=== PATIENT | male | born 1985 | race African-American/Black ===

== ENCOUNTER 2022-05-20 00:42 | Inpatient (IN) | payer SELFPAY ==
[2022-05-20 01:46] LABS: #Lymphocytes 1.1 thou/uL (1.20-3.40); #Monocytes 0.7 thou/uL (0.11-0.59); #Neutrophils 9.1 thou/uL (1.40-6.50); %Basophils 0.4 % (0.0-1.0); %Eosinophils 0.2 % (0.0-10.0); %Lymphocytes 10.2 % (21.0-51.0); %Monocytes 6.3 % (0.0-10.0); %Neutrophils 82.9 % (42.0-75.0); Hemoglobin 16.8 g/dL (14.0-18.0); Mean Corpuscular HGB CONC 31.3 g/dL (32.0-36.0); Mean Corpuscular Hemoglobin 30.4 pg (27.0-31.0); Mean Corpuscular Volume 97.3 fL (78.0-98.0); Mean Platelet Volume 8.2 fL (7.4-10.4); Platelet Count 345 thou/uL (130-400); RBC Distribution Width 11.7 % (11.5-14.5); Red Blood Cell (RBC) Count 5.52 mill/uL (4.70-6.10)
[2022-05-20 02:04] LABS: Analyzer IN Cardio ER; Base Excess -21.2 mEq/L (-2.0 to +3.0); Chloride (VBG) 99 mmol/L (98-106); Hemoglobin (Hb) 17.9 g/dL (13.2-17.3); Potassium (VBG) 5.41 mmol/L (3.70-5.30); Sodium 126.8 mmol/L (133-146)
[2022-05-20 02:09] LABS: Actual Bicarbonate (HCO3v) 7 mEq/L (22-28)
[2022-05-20 02:10] LABS: ALT (SGPT) 24 U/L (8-55); AST (SGOT) 22 U/L (5-34); Albumin 4.8 g/dL (3.5-5.0); Alkaline Phosphatase 98 U/L (40-110); BUN (Urea Nitrogen) 15 mg/dL (8.9-20.6); Bilirubin, Total 0.9 mg/dL (0.2-1.2); Calc. Creatinine Clearance 0 mL/min (70-130); Calcium 9.5 mg/dL (7.8-10.44); Chloride 98 mmol/L (98-107); Estimated GFR 55; Globulin 4.2 g/dL (2.4-3.5); Glucose 314 mg/dL (70-105); Lipase 21 U/L (8-78); Potassium 5.3 mmol/L (3.5-5.1); Sodium 127 mmol/L (136-145)
[2022-05-20 02:19] LABS: Carbon Dioxide Less than 8 mmol/L (22-29)
[2022-05-20] MEDS ORDERED: Ondansetron PF 4 MG/2 ML Vial ONE (02:37)
[2022-05-20] MEDS ORDERED: INSULIN REGULAR IN 0.9 % NACL 100 UNIT/100 ML BAG ONE (02:37)
[2022-05-20] MEDS ORDERED: Sodium Chloride 0.9% 1,000 ML IV PRN ×3 (02:42)
[2022-05-20] MEDS ORDERED: Dextrose 5 %-0.45 % NaCl 1,000 ML IV PRN (02:42)
[2022-05-20] MEDS ORDERED: D5 1/2 NS w/20 mEq KCL 1,000 ML IV PRN (02:42)
[2022-05-20] MEDS ORDERED: NS 0.9% w/ 20 MEQ KCL 1,000 ML IV PRN ×2 (02:42)
[2022-05-20] MEDS ORDERED: Electrolyte Replacement Protocol IVPB PRN (02:42)
[2022-05-20] MEDS ORDERED: Zolpidem Tartrate 5 MG TAB PO PRN (02:43)
[2022-05-20] MEDS ORDERED: Guaifenesin DM 100-10/5 ML UDCUP PO PRN (02:43)
[2022-05-20] MEDS ORDERED: Ondansetron PF 4 MG/2 ML Vial IVP PRN (02:43)
[2022-05-20] MEDS ORDERED: hydrALAZINE 20 MG/ML VIAL SLOW IVP PRN (02:44)
[2022-05-20] MEDS ORDERED: Morphine 2 MG/ML VIAL SLOW IVP PRN (02:44)
[2022-05-20] MEDS ORDERED: HUMULIN R 100 UNITS in Sodium Chloride 0.9% 100 ML IVPB SCH (02:45)
[2022-05-20] MEDS ORDERED: Nicotine 21 MG PATCH TD SCH (02:45)
[2022-05-20] MEDS ORDERED: cefTRIAXone\\ROCEPHIN 2 GM in Sodium Chloride 0.9% 100 ML IVPB SCH (03:00)
[2022-05-20 04:14] LABS: Hemoglobin A1c 13.2 % (4.0-6.0)
[2022-05-20] MEDS: Sodium Chloride 0.9% 1,000 ML IV PRN ×2 (04:19→06:09)
[2022-05-20 04:28] VITALS: BMI 21.6
[2022-05-20 04:47] LABS: Calcium 8.7 mg/dL (7.8-10.44); Chloride 104 mmol/L (98-107); Sodium 129 mmol/L (136-145)
[2022-05-20 04:48] LABS: Glucose 251 mg/dL (70-105)
[2022-05-20 04:50] LABS: Anion Gap 22 mmol/L (10-20)
[2022-05-20 04:51] LABS: Calc. Creatinine Clearance 66 mL/min (70-130); Estimated GFR 64
[2022-05-20 04:52] LABS: BUN (Urea Nitrogen) 15 mg/dL (8.9-20.6); Carbon Dioxide 8 mmol/L (22-29)
[2022-05-20 04:53] LABS: Magnesium 1.7 mg/dL (1.6-2.6)
[2022-05-20] MEDS ORDERED: Magnesium 2 GM/50 ML(in water) 2 GM in Premix Bag 1 BAG IVPB SCH (05:30)
[2022-05-20] MEDS ORDERED: Dextrose 10% in Water 250 ML IVPB SCH (06:45)
[2022-05-20 07:29] LABS: Anion Gap 17 mmol/L (10-20); BUN (Urea Nitrogen) 13 mg/dL (8.9-20.6); Calc. Creatinine Clearance 76 mL/min (70-130); Calcium 8.4 mg/dL (7.8-10.44); Carbon Dioxide 11 mmol/L (22-29); Chloride 106 mmol/L (98-107); Estimated GFR 77; Glucose 160 mg/dL (70-105); Potassium 4.6 mmol/L (3.5-5.1); Sodium 129 mmol/L (136-145)
[2022-05-20 07:52] LABS: Bacteria/HPF None Seen HPF (None Seen); Bilirubin Negative (Negative); Blood, Urine 1+ (Negative); Clarity Clear (Clear); Glucose, Urine (Dipstick) Greater than 1000 mg/dL (Negative); Ketone, Urine Greater than 150 mg/dL (Negative); Leukocyte Negative Leu/uL (Negative); Nitrite Negative (Negative); Protein, Urine (Dipstick) 50 mg/dL (Neg-Trace); RBC/HPF 0-3 HPF (0-3); Specific Gravity, Urine 1.023 (1.002-1.036); Squamous Epithelial 0-3 HPF (0-3); Urobilinogen Normal mg/dL (Less than 2); WBC/HPF 0-3 HPF (0-3); pH, Urine 5.5 (5.0-9.0)
[2022-05-20 08:22] LABS: SARS-CoV-2 NAA Rapid Test Not Detected (NotDetected)
[2022-05-20] MEDS ORDERED: Enoxaparin Sodium 30 MG/0.3 ML SYRINGE SC SCH (09:00)
[2022-05-20] MEDS ORDERED: Famotidine 20 MG TAB PO SCH (09:00)
[2022-05-20 11:42] LABS: Anion Gap 18 mmol/L (10-20); BUN (Urea Nitrogen) 11 mg/dL (8.9-20.6); Calc. Creatinine Clearance 82 mL/min (70-130); Calcium 8.2 mg/dL (7.8-10.44); Chloride 105 mmol/L (98-107); Estimated GFR 84; Glucose 188 mg/dL (70-105); Potassium 5.4 mmol/L (3.5-5.1); Sodium 126 mmol/L (136-145)
[2022-05-20 11:48] LABS: Carbon Dioxide 8 mmol/L (22-29)
[2022-05-20] MEDS: Dextrose 5 % And 0.9 % NaCl 1,000 ML IV SCH ×2 (12:05→16:23)
[2022-05-20 13:13] VITALS: TEMP 98.2
[2022-05-20] MEDS ORDERED: Dextrose 50% Abboject 50 ML SYRINGE IVP PRN (13:15)
[2022-05-20] MEDS ORDERED: Dextrose 5% in Water 1,000 ML IV PRN (13:15)
[2022-05-20 15:45] LABS: Anion Gap 12 mmol/L (10-20); BUN (Urea Nitrogen) 9 mg/dL (8.9-20.6); Calc. Creatinine Clearance 91 mL/min (70-130); Calcium 7.8 mg/dL (7.8-10.44); Carbon Dioxide 18 mmol/L (22-29); Chloride 106 mmol/L (98-107); Estimated GFR 96; Glucose 210 mg/dL (70-105); Potassium 4.2 mmol/L (3.5-5.1); Sodium 132 mmol/L (136-145)
[2022-05-20] MEDS ORDERED: Insulin Glargine 30 UNITS/0.3 ML VIAL SC SCH (16:00)
[2022-05-21] MEDS ORDERED: Enoxaparin Sodium 40 MG/0.4 ML SYRINGE SC SCH (09:00)
== END 2022-05-20 17:30 | disposition home or self-care (01) | DRG 638 ==
LOC: ERS 00:42 → CCU 02:40
PROVIDERS: ADMIT Internal Medicine; ATTEND Internal Medicine
DX: E11.10 Type 2 diabetes mellitus with ketoacidosis without coma (principal); E87.1 Hypo-osmolality and hyponatremia; N17.9 Acute kidney failure, unspecified; E87.5 Hyperkalemia; F17.210 Nicotine dependence, cigarettes, uncomplicated; Z20.822 Contact with and (suspected) exposure to COVID-19; Z79.4 Long term (current) use of insulin; Z79.84 Long term (current) use of oral hypoglycemic drugs
CPT/HCPCS: 36415; 36416; 71045; 80053; 81001; 82010; 82805; 83036; 83605; 83690; 83735; 83930; 85025; 93005; 96361; 96374; 96375; J0696; J1650; J1815; J2405; J3475; J3480; J3490; J7042; J7050; U0002

== ENCOUNTER 2022-07-07 13:05 | Inpatient (IN) | payer BC, SELFPAY ==
[2022-07-07] MEDS ORDERED: Ondansetron PF 4 MG/2 ML Vial ONE (13:45)
[2022-07-07 14:03] LABS: Base Excess -24.1 mEq/L (-2.0 to +3.0); Calcium, Ionized (venous) 1.07 mmol/L (1.16-1.32); Chloride (VBG) 100 mmol/L (98-106); Hemoglobin (Hb) 18.8 g/dL (13.2-17.3); Potassium (VBG) 5.12 mmol/L (3.70-5.30); Sodium 131.6 mmol/L (133-146)
[2022-07-07 14:04] LABS: Actual Bicarbonate (HCO3v) 6 mEq/L (22-28); pH (venous) 6.99 (7.32-7.43)
[2022-07-07 14:23] LABS: #Lymphocytes 0.9 thou/uL (1.20-3.40); #Monocytes 1.1 thou/uL (0.11-0.59); #Neutrophils 11.7 thou/uL (1.40-6.50); %Basophils 0.3 % (0.0-1.0); %Eosinophils 0.2 % (0.0-10.0); %Lymphocytes 6.8 % (21.0-51.0); %Monocytes 7.8 % (0.0-10.0); %Neutrophils 84.8 % (42.0-75.0); Hemoglobin 16.4 g/dL (14.0-18.0); Mean Corpuscular Hemoglobin 29.9 pg (27.0-31.0); Mean Corpuscular Volume 99.9 fl (78.0-98.0); Platelet Count 426 10x3/uL (130-400); RBC Distribution Width 11.9 % (11.5-14.5); Red Blood Cell (RBC) Count 5.48 mill/uL (4.70-6.10); White Blood Cell (WBC) Count 13.8 10x3/uL (4.8-10.8)
[2022-07-07 14:25] LABS: ALT (SGPT) 27 U/L (8-55); AST (SGOT) 22 U/L (5-34); Albumin 4.8 g/dL (3.5-5.0); Alkaline Phosphatase 107 U/L (40-110); Anion Gap 29 mmol/L (10-20); BUN (Urea Nitrogen) 20 mg/dL (8.9-20.6); Bilirubin, Total 0.8 mg/dL (0.2-1.2); Calc. Creatinine Clearance 0 mL/min (70-130); Chloride 98 mmol/L (98-107); Estimated GFR 49; Globulin 3.4 g/dL (2.4-3.5); Glucose 358 mg/dL (70-105); Lipase 22 U/L (8-78); Phosphorus 6.5 mg/dL (2.3-4.7); Potassium 5.7 mmol/L (3.5-5.1); Protein, Total 8.2 g/dL (6.0-8.3); Sodium 129 mmol/L (136-145)
[2022-07-07 14:36] LABS: Hypochromia SLIGHT = 6-15 cells (100X) (0-5/hpf); MDiff Complete? YES; Macrocytosis SLIGHT = 6-15 cells (100X) (0-5/hpf); Platelet Morphology Comment Appears Increased; Polychromasia SLIGHT = 2-3 cells (100X) (0-2/hpf)
[2022-07-07] MEDS ORDERED: INSULIN REGULAR IN 0.9 % NACL 100 UNIT/100 ML BAG ONE (14:37)
[2022-07-07 14:50] LABS: Carbon Dioxide 8 mmol/L (22-29)
[2022-07-07] MEDS ORDERED: Ondansetron PF 4 MG/2 ML Vial IVP PRN (15:13)
[2022-07-07] MEDS ORDERED: Acetaminophen 650 MG Suppository PR PRN (15:13)
[2022-07-07] MEDS ORDERED: Sodium Chloride 0.9% 1,000 ML IV PRN ×4 (15:13)
[2022-07-07] MEDS ORDERED: Dextrose 5 %-0.45 % NaCl 1,000 ML IV PRN (15:13)
[2022-07-07] MEDS ORDERED: Ondansetron ODT 4 MG TAB PO PRN (15:13)
[2022-07-07] MEDS ORDERED: Senokot S 8.6-50 MG TAB PO PRN (15:13)
[2022-07-07] MEDS ORDERED: Electrolyte Replacement Protocol 1 EACH IVPB ONE (15:13)
[2022-07-07] MEDS ORDERED: Acetaminophen 325 MG TAB PO PRN (15:13)
[2022-07-07] MEDS ORDERED: Calcium Carbonate 500 MG ChewTAB PO PRN (15:13)
[2022-07-07] MEDS ORDERED: NS 0.9% w/ 20 MEQ KCL 1,000 ML IV PRN ×2 (15:13)
[2022-07-07] MEDS ORDERED: HUMULIN R 100 UNITS in Sodium Chloride 0.9% 100 ML IVPB SCH (15:15)
[2022-07-07] MEDS ORDERED: Sodium Chloride 0.9% 1,000 ML IV SCH ×2 (15:30→16:30)
[2022-07-07 16:12] LABS: Anion Gap 26 mmol/L (10-20); BUN (Urea Nitrogen) 19 mg/dL (8.9-20.6); Calc. Creatinine Clearance 0 mL/min (70-130); Calcium 9.2 mg/dL (7.8-10.44); Chloride 103 mmol/L (98-107); Estimated GFR 56; Glucose 315 mg/dL (70-105); Potassium 5.8 mmol/L (3.5-5.1); Sodium 131 mmol/L (136-145)
[2022-07-07 16:19] LABS: Carbon Dioxide 8 mmol/L (22-29)
[2022-07-07] MEDS ORDERED: Sodium Bicarb 50 MEQ/50 ML VIAL IVP SCH (16:30)
[2022-07-07] MEDS ORDERED: Electrolyte Replacement Protocol FS PRN (16:30)
[2022-07-07] MEDS ORDERED: Sodium Bicarb 50 MEQ/50 ML Abboject 8.4% SYRINGE IVP SCH (16:30)
[2022-07-07] MEDS: Sodium Bicarb 50 MEQ/50 ML VIAL IVP SCH ×2 (17:08→19:47)
[2022-07-07 19:43] LABS: Anion Gap 19 mmol/L (10-20); BUN (Urea Nitrogen) 16 mg/dL (8.9-20.6); Calc. Creatinine Clearance 62 mL/min (70-130); Calcium 8.1 mg/dL (7.8-10.44); Carbon Dioxide 15 mmol/L (22-29); Chloride 109 mmol/L (98-107); Estimated GFR 63; Glucose 141 mg/dL (70-105); Potassium 4.4 mmol/L (3.5-5.1); Sodium 139 mmol/L (136-145)
[2022-07-07] MEDS: D5 1/2 NS w/20 mEq KCL 1,000 ML IV PRN (19:54)
[2022-07-07] MEDS ORDERED: Magnesium 2 GM/50 ML(in water) 2 GM in Premix Bag 1 BAG IVPB SCH (22:00)
[2022-07-07 23:39] LABS: Anion Gap 13 mmol/L (10-20); BUN (Urea Nitrogen) 15 mg/dL (8.9-20.6); Calc. Creatinine Clearance 84 mL/min (70-130); Calcium 7.7 mg/dL (7.8-10.44); Carbon Dioxide 19 mmol/L (22-29); Chloride 108 mmol/L (98-107); Estimated GFR 91; Glucose 203 mg/dL (70-105); Potassium 4.3 mmol/L (3.5-5.1); Sodium 136 mmol/L (136-145)
[2022-07-08] MEDS: D5 1/2 NS w/20 mEq KCL 1,000 ML IV PRN ×2 (04:11)
[2022-07-08 04:21] LABS: #Lymphocytes 1.5 thou/uL (1.20-3.40); #Monocytes 1.4 thou/uL (0.11-0.59); #Neutrophils 8.8 thou/uL (1.40-6.50); %Basophils 0.1 % (0.0-1.0); %Eosinophils 0.3 % (0.0-10.0); %Lymphocytes 12.8 % (21.0-51.0); %Monocytes 12.1 % (0.0-10.0); %Neutrophils 74.6 % (42.0-75.0); Hemoglobin 12.7 g/dL (14.0-18.0); Mean Corpuscular HGB CONC 31.9 g/dL (32.0-36.0); Mean Corpuscular Hemoglobin 30.4 pg (27.0-31.0); Mean Corpuscular Volume 95.4 fl (78.0-98.0); Mean Platelet Volume 7.5 fL (7.4-10.4); Platelet Count 333 10x3/uL (130-400); RBC Distribution Width 11.6 % (11.5-14.5); Red Blood Cell (RBC) Count 4.18 mill/uL (4.70-6.10); White Blood Cell (WBC) Count 11.8 10x3/uL (4.8-10.8)
[2022-07-08 04:22] LABS: Hemoglobin A1c 13.4 % (4.0-6.0)
[2022-07-08 04:42] LABS: ALT (SGPT) 16 U/L (8-55); AST (SGOT) 15 U/L (5-34); Albumin 3.1 g/dL (3.5-5.0); Alkaline Phosphatase 65 U/L (40-110); Anion Gap 10 mmol/L (10-20); BUN (Urea Nitrogen) 13 mg/dL (8.9-20.6); Bilirubin, Total 1.2 mg/dL (0.2-1.2); Calc. Creatinine Clearance 89 mL/min (70-130); Calcium 7.6 mg/dL (7.8-10.44); Carbon Dioxide 21 mmol/L (22-29); Chloride 107 mmol/L (98-107); Estimated GFR 97; Globulin 2.3 g/dL (2.4-3.5); Glucose 220 mg/dL (70-105); Magnesium 1.9 mg/dL (1.6-2.6); Phosphorus 2.4 mg/dL (2.3-4.7); Potassium 4.1 mmol/L (3.5-5.1); Protein, Total 5.4 g/dL (6.0-8.3); Sodium 134 mmol/L (136-145)
[2022-07-08] MEDS ORDERED: Magnesium 2 GM/50 ML(in water) 2 GM in Premix Bag 1 BAG IVPB SCH (08:00)
[2022-07-08] MEDS ORDERED: Dextrose 50% Abboject 50 ML SYRINGE SLOW IVP PRN (08:13)
[2022-07-08] MEDS ORDERED: Dextrose 5% in Water 1,000 ML IV PRN (08:13)
[2022-07-08] MEDS ORDERED: HumaLOG 300 UNITS/3 ML VIAL SC PRN (08:13)
[2022-07-08] MEDS ORDERED: Sodium Chloride 0.9% 1,000 ML IV SCH (08:30)
[2022-07-08] MEDS ORDERED: Potassium Chloride 20 MEQ TAB PO SCH (08:30)
[2022-07-08] MEDS ORDERED: Insulin Glargine 30 UNITS/0.3 ML VIAL SC SCH (09:00)
[2022-07-08] MEDS ORDERED: Enoxaparin Sodium 40 MG/0.4 ML SYRINGE SC SCH (09:00)
[2022-07-08] MEDS ORDERED: Nicotine 21 MG PATCH TD SCH (09:00)
[2022-07-08 11:53] VITALS: TEMP 97.9
[2022-07-08 13:25] VITALS: BMI 22.6
== END 2022-07-08 16:45 | disposition left against medical advice (07) | DRG 638 ==
LOC: ERS 13:05 → IMCU/EMU 16:23
PROVIDERS: ADMIT Internal Medicine; ATTEND Internal Medicine
DX: E11.10 Type 2 diabetes mellitus with ketoacidosis without coma (principal); E87.1 Hypo-osmolality and hyponatremia; N17.9 Acute kidney failure, unspecified; Z20.822 Contact with and (suspected) exposure to COVID-19; E86.0 Dehydration; E87.5 Hyperkalemia; F17.210 Nicotine dependence, cigarettes, uncomplicated; Z79.4 Long term (current) use of insulin; Z79.899 Other long term (current) drug therapy; Z79.84 Long term (current) use of oral hypoglycemic drugs; Z91.14 Patient's other noncompliance with medication regimen; Z53.29 Procedure and treatment not carried out because of patient's decision for other reasons
CPT/HCPCS: 36415; 36416; 80053; 82010; 82805; 83036; 83690; 83735; 84100; 84484; 85025; 93005; J1815; J2405; J3475; J3480; J7050

== ENCOUNTER 2022-09-13 20:48 | Inpatient (IN) | payer BC, SELFPAY ==
[2022-09-13] MEDS ORDERED: Ondansetron PF 4 MG/2 ML Vial ONE ×2 (21:25→23:41)
[2022-09-13 21:33] LABS: #Basophils 0.1 thou/uL (0.0-0.2); #Eosinphils 0.1 thou/uL (0.0-0.7); #Lymphocytes 1.5 thou/uL (1.20-3.40); #Monocytes 1.3 thou/uL (0.11-0.59); #Neutrophils 10.2 thou/uL (1.40-6.50); %Basophils 0.6 % (0.0-1.0); %Eosinophils 0.5 % (0.0-10.0); %Lymphocytes 11.4 % (21.0-51.0); %Monocytes 9.9 % (0.0-10.0); %Neutrophils 77.6 % (42.0-75.0); Hemoglobin 16.8 g/dL (14.0-18.0); Mean Corpuscular HGB CONC 31.5 g/dL (32.0-36.0); Mean Corpuscular Hemoglobin 30.3 pg (27.0-31.0); Mean Corpuscular Volume 96.1 fl (78.0-98.0); Mean Platelet Volume 8.1 fL (7.4-10.4); Platelet Count 323 10x3/uL (130-400); Red Blood Cell (RBC) Count 5.53 mill/uL (4.70-6.10); White Blood Cell (WBC) Count 13.1 10x3/uL (4.8-10.8)
[2022-09-13 21:53] LABS: ALT (SGPT) 18 U/L (8-55); AST (SGOT) 21 U/L (5-34); Albumin 4.9 g/dL (3.5-5.0); Alkaline Phosphatase 108 U/L (40-110); BUN (Urea Nitrogen) 11 mg/dL (8.9-20.6); Bilirubin, Total 0.5 mg/dL (0.2-1.2); Calc. Creatinine Clearance 0 mL/min (70-130); Chloride 101 mmol/L (98-107); Estimated GFR 49; Globulin 4.4 g/dL (2.4-3.5); Glucose 300 mg/dL (70-105); Lipase 21 U/L (8-78); Potassium 5.4 mmol/L (3.5-5.1); Protein, Total 9.3 g/dL (6.0-8.3); Sodium 131 mmol/L (136-145)
[2022-09-13 21:58] LABS: Carbon Dioxide Less than 8 mmol/L (22-29)
[2022-09-13] MEDS ORDERED: INSULIN REGULAR IN 0.9 % NACL 100 UNIT/100 ML BAG ONE (22:58)
[2022-09-13] MEDS ORDERED: D5 1/2 NS w/20 mEq KCL 1,000 ML IV PRN (23:40)
[2022-09-13] MEDS ORDERED: Sodium Chloride 0.9% 1,000 ML IV PRN ×4 (23:40)
[2022-09-13] MEDS ORDERED: NS 0.9% w/ 20 MEQ KCL 1,000 ML IV PRN ×2 (23:40)
[2022-09-13] MEDS ORDERED: Ondansetron PF 4 MG/2 ML Vial IVP PRN (23:40)
[2022-09-13] MEDS ORDERED: Acetaminophen 325 MG TAB PO PRN (23:40)
[2022-09-13] MEDS ORDERED: Electrolyte Replacement Protocol 1 EACH IVPB SCH (23:40)
[2022-09-13] MEDS ORDERED: Dextrose 5 %-0.45 % NaCl 1,000 ML IV PRN (23:40)
[2022-09-13] MEDS ORDERED: Nicotine 14 MG PATCH TD SCH (23:45)
[2022-09-13] MEDS ORDERED: HUMULIN R 100 UNITS in Sodium Chloride 0.9% 100 ML IVPB SCH (23:45)
[2022-09-14 00:40] LABS: SARS-CoV-2 NAA Rapid Test DETECTED (NotDetected)
[2022-09-14 02:26] LABS: #Basophils 0.1 thou/uL (0.0-0.2); #Lymphocytes 1.7 thou/uL (1.20-3.40); #Monocytes 1.4 thou/uL (0.11-0.59); #Neutrophils 8.1 thou/uL (1.40-6.50); %Basophils 0.6 % (0.0-1.0); %Eosinophils 0.4 % (0.0-10.0); %Lymphocytes 15.3 % (21.0-51.0); %Monocytes 12.3 % (0.0-10.0); %Neutrophils 71.4 % (42.0-75.0); Hemoglobin 14.3 g/dL (14.0-18.0); Mean Corpuscular HGB CONC 31.6 g/dL (32.0-36.0); Mean Corpuscular Hemoglobin 29.8 pg (27.0-31.0); Mean Corpuscular Volume 94.3 fl (78.0-98.0); Mean Platelet Volume 7.8 fL (7.4-10.4); Platelet Count 300 10x3/uL (130-400); RBC Distribution Width 11.9 % (11.5-14.5); Red Blood Cell (RBC) Count 4.79 mill/uL (4.70-6.10); White Blood Cell (WBC) Count 11.3 10x3/uL (4.8-10.8)
[2022-09-14 03:18] LABS: Anion Gap 17 mmol/L (10-20); BUN (Urea Nitrogen) 10 mg/dL (8.9-20.6); Calc. Creatinine Clearance 83 mL/min (70-130); Calcium 8.2 mg/dL (7.8-10.44); Carbon Dioxide 10 mmol/L (22-29); Chloride 109 mmol/L (98-107); Estimated GFR 77; Glucose 126 mg/dL (70-105); Magnesium 1.6 mg/dL (1.6-2.6); Potassium 4.3 mmol/L (3.5-5.1); Sodium 132 mmol/L (136-145)
[2022-09-14 06:35] LABS: Anion Gap 13 mmol/L (10-20); BUN (Urea Nitrogen) 9 mg/dL (8.9-20.6); Calc. Creatinine Clearance 93 mL/min (70-130); Calcium 8.2 mg/dL (7.8-10.44); Carbon Dioxide 15 mmol/L (22-29); Chloride 108 mmol/L (98-107); Estimated GFR 86; Glucose 184 mg/dL (70-105); Sodium 132 mmol/L (136-145)
[2022-09-14] MEDS ORDERED: Magnesium 2 GM/50 ML(in water) 2 GM in Premix Bag 1 BAG IVPB SCH (08:00)
[2022-09-14 10:32] LABS: Anion Gap 11 mmol/L (10-20); BUN (Urea Nitrogen) 7 mg/dL (8.9-20.6); Calc. Creatinine Clearance 103 mL/min (70-130); Carbon Dioxide 16 mmol/L (22-29); Chloride 109 mmol/L (98-107); Estimated GFR 97; Glucose 149 mg/dL (70-105); Potassium 4.2 mmol/L (3.5-5.1); Sodium 132 mmol/L (136-145)
[2022-09-14 12:17] VITALS: TEMP 98.5
[2022-09-14 15:07] VITALS: BMI 24.0
[2022-09-14] MEDS ORDERED: Insulin Glargine 30 UNITS/0.3 ML VIAL SC SCH (15:15)
== END 2022-09-14 18:49 | disposition home or self-care (01) | DRG 637 ==
LOC: ERS 20:48 → IMCU/EMU 23:40
PROVIDERS: ADMIT Internal Medicine; ATTEND Hospitalist
PROC: 8E0ZXY6 Isolation (ICD-10-PCS; principal; 2022-09-13)
DX: E11.10 Type 2 diabetes mellitus with ketoacidosis without coma (principal); U07.1 COVID-19; E87.1 Hypo-osmolality and hyponatremia; N17.9 Acute kidney failure, unspecified; E87.5 Hyperkalemia; E86.0 Dehydration; Z79.84 Long term (current) use of oral hypoglycemic drugs; Z79.4 Long term (current) use of insulin; Z79.899 Other long term (current) drug therapy
CPT/HCPCS: 36415; 36416; 80053; 82010; 83690; 83735; 85025; 96361; 96374; 96375; 96376; J1650; J1815; J2405; J3475; J3480; J3490; J7042; U0002

== ENCOUNTER 2022-10-01 08:40 | Inpatient (IN) | payer SELFPAY ==
[2022-10-01] MEDS ORDERED: Ondansetron PF 4 MG/2 ML Vial ONE (09:04)
[2022-10-01] MEDS ORDERED: Ibuprofen 800 MG TAB ONE (09:04)
[2022-10-01] MEDS ORDERED: Acetaminophen 500 MG TAB ONE (09:04)
[2022-10-01 09:44] LABS: #Eosinphils 0.1 thou/uL (0.0-0.7); #Lymphocytes 1.4 thou/uL (1.20-3.40); #Monocytes 0.4 thou/uL (0.11-0.59); #Neutrophils 5.8 thou/uL (1.40-6.50); %Basophils 0.3 % (0.0-1.0); %Eosinophils 0.9 % (0.0-10.0); %Lymphocytes 17.9 % (21.0-51.0); %Monocytes 5.2 % (0.0-10.0); %Neutrophils 75.8 % (42.0-75.0); Hemoglobin 15.7 g/dL (14.0-18.0); Mean Corpuscular HGB CONC 31.3 g/dL (32.0-36.0); Mean Corpuscular Volume 95.7 fl (78.0-98.0); Mean Platelet Volume 8.3 fL (7.4-10.4); Platelet Count 352 10x3/uL (130-400); Red Blood Cell (RBC) Count 5.24 mill/uL (4.70-6.10); White Blood Cell (WBC) Count 7.7 10x3/uL (4.8-10.8)
[2022-10-01 10:02] LABS: ALT (SGPT) 13 U/L (8-55); AST (SGOT) 14 U/L (5-34); Albumin 4.6 g/dL (3.5-5.0); Alkaline Phosphatase 85 U/L (40-110); Anion Gap 24 mmol/L (10-20); BUN (Urea Nitrogen) 14 mg/dL (8.9-20.6); Bilirubin, Total 0.7 mg/dL (0.2-1.2); Calc. Creatinine Clearance 0 mL/min (70-130); Calcium 9.6 mg/dL (7.8-10.44); Chloride 99 mmol/L (98-107); Estimated GFR 59; Globulin 3.6 g/dL (2.4-3.5); Glucose 312 mg/dL (70-105); Lipase 30 U/L (8-78); Magnesium 1.8 mg/dL (1.6-2.6); Phosphorus 4.7 mg/dL (2.3-4.7); Potassium 4.8 mmol/L (3.5-5.1); Protein, Total 8.2 g/dL (6.0-8.3); Sodium 127 mmol/L (136-145)
[2022-10-01 10:21] LABS: Carbon Dioxide 9 mmol/L (22-29)
[2022-10-01 10:29] LABS: SARS-CoV-2 NAA Rapid Test Not Detected (NotDetected)
[2022-10-01 10:35] LABS: Calcium, Ionized (venous) 1.24 mmol/L (1.16-1.32); Chloride (VBG) 101 mmol/L (98-106); Hemoglobin (Hb) 16.4 g/dL (13.2-17.3); Potassium (VBG) 5.15 mmol/L (3.70-5.30); Sodium 132.5 mmol/L (133-146)
[2022-10-01] MEDS ORDERED: INSULIN REGULAR IN 0.9 % NACL 100 UNIT/100 ML BAG ONE (10:44)
[2022-10-01] MEDS ORDERED: NS 0.9% w/ 20 MEQ KCL 1,000 ML ONE ×2 (10:56→12:35)
[2022-10-01 10:58] LABS: Bacteria/HPF None Seen HPF (None Seen); Bilirubin Negative (Negative); Blood, Urine Negative (Negative); Clarity Clear (Clear); Glucose, Urine (Dipstick) Greater than 1000 mg/dL (Negative); Ketone, Urine Greater than 150 mg/dL (Negative); Leukocyte Negative Leu/uL (Negative); Nitrite Negative (Negative); Protein, Urine (Dipstick) 30 mg/dL (Neg-Trace); RBC/HPF None Seen HPF (0-3); Specific Gravity, Urine 1.028 (1.002-1.036); Squamous Epithelial 0-3 HPF (0-3); Urobilinogen Normal mg/dL (Less than 2); WBC/HPF None Seen HPF (0-3)
[2022-10-01] MEDS ORDERED: Calcium Carbonate 500 MG ChewTAB PO PRN (10:58)
[2022-10-01] MEDS ORDERED: Senokot S 8.6-50 MG TAB PO PRN (10:58)
[2022-10-01] MEDS ORDERED: Ondansetron PF 4 MG/2 ML Vial IVP PRN (10:58)
[2022-10-01] MEDS ORDERED: HYDROcodone/Acetaminophen 5/325 mg Tablet PO PRN (10:58)
[2022-10-01] MEDS ORDERED: Acetaminophen 325 MG TAB PO PRN (10:58)
[2022-10-01] MEDS ORDERED: Dextrose 50% Abboject 50 ML SYRINGE SLOW IVP PRN ×2 (11:00→11:01)
[2022-10-01] MEDS ORDERED: HumaLOG 300 UNITS/3 ML VIAL SC PRN (11:00)
[2022-10-01] MEDS ORDERED: Dextrose 5% in Water 1,000 ML IV PRN (11:00)
[2022-10-01] MEDS ORDERED: Sodium Chloride 0.9% 1,000 ML IV PRN ×4 (11:01)
[2022-10-01] MEDS ORDERED: Dextrose 5 %-0.45 % NaCl 1,000 ML IV PRN (11:01)
[2022-10-01] MEDS ORDERED: Electrolyte Replacement Protocol 1 EACH IVPB SCH (11:01)
[2022-10-01] MEDS ORDERED: NS 0.9% w/ 20 MEQ KCL 1,000 ML IV PRN ×2 (11:01)
[2022-10-01] MEDS ORDERED: HUMULIN R 100 UNITS in Sodium Chloride 0.9% 100 ML IVPB SCH (11:15)
[2022-10-01 11:46] LABS: Hemoglobin A1c 12.5 % (4.0-6.0)
[2022-10-01 11:50] LABS: Phosphorus 3.9 mg/dL (2.3-4.7)
[2022-10-01 11:51] LABS: Anion Gap 20 mmol/L (10-20); BUN (Urea Nitrogen) 15 mg/dL (8.9-20.6); Calc. Creatinine Clearance 0 mL/min (70-130); Calcium 8.7 mg/dL (7.8-10.44); Carbon Dioxide 11 mmol/L (22-29); Chloride 106 mmol/L (98-107); Estimated GFR 70; Glucose 268 mg/dL (70-105); Magnesium 1.6 mg/dL (1.6-2.6); Potassium 4.7 mmol/L (3.5-5.1); Sodium 132 mmol/L (136-145)
[2022-10-01] MEDS ORDERED: Potassium Chloride 20 MEQ TAB PO SCH (13:00)
[2022-10-01 15:47] LABS: Anion Gap 17 mmol/L (10-20); BUN (Urea Nitrogen) 13 mg/dL (8.9-20.6); Calc. Creatinine Clearance 0 mL/min (70-130); Calcium 8.3 mg/dL (7.8-10.44); Carbon Dioxide 14 mmol/L (22-29); Chloride 104 mmol/L (98-107); Estimated GFR 68; Glucose 332 mg/dL (70-105); Potassium 4.9 mmol/L (3.5-5.1); Sodium 130 mmol/L (136-145)
[2022-10-01 16:36] VITALS: BMI 24.7
[2022-10-01 17:15] VITALS: BP 135/89
[2022-10-01 19:56] LABS: Anion Gap 12 mmol/L (10-20); BUN (Urea Nitrogen) 9 mg/dL (8.9-20.6); Calc. Creatinine Clearance 93 mL/min (70-130); Calcium 8.4 mg/dL (7.8-10.44); Carbon Dioxide 15 mmol/L (22-29); Chloride 107 mmol/L (98-107); Estimated GFR 83; Glucose 196 mg/dL (70-105); Potassium 4.2 mmol/L (3.5-5.1); Sodium 130 mmol/L (136-145)
[2022-10-01] MEDS: Famotidine/PF 20 mg/2ml Vial SLOW IVP SCH (20:19)
[2022-10-01] MEDS: D5 1/2 NS w/20 mEq KCL 1,000 ML IV PRN (22:50)
[2022-10-02] MEDS: D5 1/2 NS w/20 mEq KCL 1,000 ML IV PRN (02:54)
[2022-10-02 03:59] LABS: #Eosinphils 0.2 thou/uL (0.0-0.7); #Lymphocytes 1.6 thou/uL (1.20-3.40); #Monocytes 0.6 thou/uL (0.11-0.59); #Neutrophils 3.7 thou/uL (1.40-6.50); %Basophils 0.7 % (0.0-1.0); %Eosinophils 3.7 % (0.0-10.0); %Lymphocytes 26.2 % (21.0-51.0); %Monocytes 10.4 % (0.0-10.0); Hemoglobin 13.4 g/dL (14.0-18.0); Mean Corpuscular HGB CONC 32.3 g/dL (32.0-36.0); Mean Corpuscular Hemoglobin 30.4 pg (27.0-31.0); Mean Corpuscular Volume 94.1 fl (78.0-98.0); Mean Platelet Volume 7.8 fL (7.4-10.4); Platelet Count 273 10x3/uL (130-400); RBC Distribution Width 11.9 % (11.5-14.5); Red Blood Cell (RBC) Count 4.39 mill/uL (4.70-6.10); White Blood Cell (WBC) Count 6.2 10x3/uL (4.8-10.8)
[2022-10-02 04:23] LABS: Anion Gap 9 mmol/L (10-20); BUN (Urea Nitrogen) 8 mg/dL (8.9-20.6); Calc. Creatinine Clearance 123 mL/min (70-130); Calcium 8.5 mg/dL (7.8-10.44); Carbon Dioxide 19 mmol/L (22-29); Chloride 108 mmol/L (98-107); Estimated GFR 113; Glucose 183 mg/dL (70-105); Magnesium 1.6 mg/dL (1.6-2.6); Potassium 3.9 mmol/L (3.5-5.1); Sodium 132 mmol/L (136-145)
[2022-10-02 04:31] LABS: Phosphorus 2.7 mg/dL (2.3-4.7)
[2022-10-02] MEDS ORDERED: Magnesium 2 GM/50 ML(in water) 2 GM in Premix Bag 1 BAG IVPB SCH (08:00)
[2022-10-02 08:15] VITALS: TEMP 97.4
[2022-10-02] MEDS: Famotidine/PF 20 mg/2ml Vial SLOW IVP SCH (08:24)
[2022-10-02] MEDS ORDERED: Insulin Glargine 30 UNITS/0.3 ML VIAL SC SCH (08:30)
[2022-10-02 10:14] LABS: Actual Bicarbonate (HCO3v) 11 mEq/L (22-28); pH (venous) 7.13 (7.32-7.43)
== END 2022-10-02 10:45 | disposition home or self-care (01) | DRG 638 ==
LOC: ERS 08:40 → ERHOLD 10:58 → IMCU/EMU 14:56
PROVIDERS: ADMIT Family Medicine; ATTEND Internal Medicine
DX: E11.10 Type 2 diabetes mellitus with ketoacidosis without coma (principal); N17.9 Acute kidney failure, unspecified; F17.210 Nicotine dependence, cigarettes, uncomplicated; Z20.822 Contact with and (suspected) exposure to COVID-19; Z79.84 Long term (current) use of oral hypoglycemic drugs; Z79.4 Long term (current) use of insulin; Z86.16 Personal history of COVID-19
CPT/HCPCS: 36415; 36416; 71045; 80048; 80053; 81003; 81015; 82010; 82805; 83036; 83690; 83735; 84100; 85025; 93005; 94760; J1815; J2405; J3475; J3480; S0028

== ENCOUNTER 2023-03-20 19:06 | Emergency (ER) | payer BC, SELFPAY | END 2023-03-20 19:35 | disposition home or self-care (01) | LOC: ERS 19:06 | DX: Z20.822 Contact with and (suspected) exposure to COVID-19 (principal) | CPT/HCPCS: 87635; 99283 ==

== ENCOUNTER 2023-03-25 18:54 | Emergency (ER) | payer BC | END 2023-03-25 19:39 | disposition left against medical advice (07) | LOC: ERS 18:54 | DX: Z53.21 Procedure and treatment not carried out due to patient leaving prior to being seen by health care provider (principal) ==

== ENCOUNTER 2023-08-30 18:55 | Emergency (ER) | payer BC, SELFPAY | END 2023-08-30 19:28 | disposition home or self-care (01) | LOC: ERS 18:55 | DX: E11.9 Type 2 diabetes mellitus without complications (principal); Z76.0 Encounter for issue of repeat prescription; F17.210 Nicotine dependence, cigarettes, uncomplicated; Z79.4 Long term (current) use of insulin | CPT/HCPCS: 99281 ==

== ENCOUNTER 2024-03-08 02:07 | Inpatient (IN) | payer BC, SELFPAY ==
[2024-03-08 02:55] LABS: #Basophils 0.03 10x3/uL (0.0-0.2); %Basophils 0.3 % (0.0-1.0); %Eosinophils 3.3 % (0.0-10.0); %Lymphocytes 12.3 % (21.0-51.0); %Monocytes 5.4 % (0.0-10.0); %Neutrophils 78.3 % (42.0-75.0); Hematocrit 53.4 % (42.0-52.0); Hemoglobin 16.9 g/dL (14.0-18.0); Mean Corpuscular HGB CONC 31.6 g/dL (32.0-36.0); Mean Corpuscular Hemoglobin 29.4 pg (27.0-31.0); Mean Corpuscular Volume 92.9 fL (78.0-98.0); Mean Platelet Volume 9.8 fL (7.4-10.4); Platelet Count 388 10x3/uL (130-400); RBC Distribution Width 12.4 % (11.5-14.5); Red Blood Cell (RBC) Count 5.75 mill/uL (4.70-6.10)
[2024-03-08 04:27] LABS: Base Excess -15.6 mEq/L (-2.0 to +3.0); Calcium, Ionized (venous) 1.25 mmol/L (1.16-1.32); Chloride (VBG) 97 mmol/L (98-106); Hematocrit-VBG 51 % (42.0-52.0); Hemoglobin (Hb) 17.3 g/dL (13.2-17.3); Potassium (VBG) 5.12 mmol/L (3.70-5.30); Sodium 134 mmol/L (133-146)
[2024-03-08 04:29] LABS: Actual Bicarbonate (HCO3v) 13.7 mEq/L (22-28); pH (venous) 7.108 (7.32-7.43)
[2024-03-08 04:32] LABS: Chloride 98 mmol/L (98-107); Potassium 5.6 mmol/L (3.5-5.1); Sodium 127 mmol/L (136-145)
[2024-03-08 04:33] LABS: Calcium 9.7 mg/dL (7.8-10.44); Globulin 4.2 g/dL (2.4-3.5); Glucose 360 mg/dL (70-105); Protein, Total 8.2 g/dL (6.0-8.3)
[2024-03-08 04:35] LABS: Anion Gap 25 mmol/L (10-20); Carbon Dioxide 10 mmol/L (22-29)
[2024-03-08] MEDS ORDERED: INSULIN REGULAR IN 0.9 % NACL 100 ML ONE ×2 (04:35→18:21)
[2024-03-08 04:36] LABS: Alkaline Phosphatase 122 U/L (40-110); Bilirubin, Total 0.9 mg/dL (0.2-1.2)
[2024-03-08 04:37] LABS: BUN (Urea Nitrogen) 16 mg/dL (8.9-20.6); Calc. Creatinine Clearance 0 mL/min (70-130); Estimated GFR 63
[2024-03-08 04:39] LABS: ALT (SGPT) 25 U/L (8-55); AST (SGOT) 24 U/L (5-34)
[2024-03-08] MEDS ORDERED: Ondansetron PF 4 MG/2 ML Vial ONE (04:43)
[2024-03-08] MEDS ORDERED: Sodium Chloride 0.9% 1,000 ML IV PRN ×4 (08:23)
[2024-03-08] MEDS ORDERED: Ondansetron ODT 4 MG TAB PO PRN (08:23)
[2024-03-08] MEDS ORDERED: Dextrose 5 %-0.45 % NaCl 1,000 ML IV PRN (08:23)
[2024-03-08] MEDS ORDERED: Electrolyte Replacement Protocol 1 EACH IVPB SCH (08:23)
[2024-03-08] MEDS ORDERED: Dextrose 50% Abboject 50 ML SYRINGE SLOW IVP PRN (08:23)
[2024-03-08] MEDS ORDERED: NS 0.9% w/ 20 MEQ KCL 1,000 ML IV PRN ×2 (08:23)
[2024-03-08] MEDS ORDERED: Ondansetron PF 4 MG/2 ML Vial IVP PRN (08:23)
[2024-03-08] MEDS ORDERED: Enoxaparin 30 MG (0.3 mL) SYRINGE SC SCH (08:30)
[2024-03-08] MEDS ORDERED: INSULIN REGULAR IN 0.9 % NACL 100 UNITS in Premix 1 BAG IVPB SCH (08:45)
[2024-03-08] MEDS ORDERED: Prochlorperazine Maleate 5 MG TAB PO PRN (09:04)
[2024-03-08 10:29] VITALS: TEMP 98.3; BMI 22.1
[2024-03-08] MEDS: Prochlorperazine Edisylate 10 MG in Sodium Chloride 0.9% 50 ML IVPB SCH (11:22)
[2024-03-08 13:05] LABS: Anion Gap 14 mmol/L (10-20); BUN (Urea Nitrogen) 14 mg/dL (8.9-20.6); Calc. Creatinine Clearance 76 mL/min (70-130); Calcium 8.7 mg/dL (7.8-10.44); Carbon Dioxide 18 mmol/L (22-29); Chloride 106 mmol/L (98-107); Estimated GFR 76; Glucose 104 mg/dL (70-105); Magnesium 1.8 mg/dL (1.6-2.6); Phosphorus 3.1 mg/dL (2.3-4.7); Potassium 4.1 mmol/L (3.5-5.1); Sodium 134 mmol/L (136-145)
[2024-03-08] MEDS ORDERED: NS 0.9% w/ 20 MEQ KCL 0 ML ONE (13:27)
[2024-03-08] MEDS ORDERED: NS 0.9% w/ 20 MEQ KCL 1,000 ML ONE (13:28)
[2024-03-08] MEDS ORDERED: D5 1/2 NS w/20 mEq KCL 1,000 ML ONE ×2 (13:48→18:22)
[2024-03-08 13:49] LABS: Anion Gap 12 mmol/L (10-20); BUN (Urea Nitrogen) 12 mg/dL (8.9-20.6); Calc. Creatinine Clearance 89 mL/min (70-130); Calcium 8.6 mg/dL (7.8-10.44); Carbon Dioxide 16 mmol/L (22-29); Chloride 108 mmol/L (98-107); Estimated GFR 91; Glucose 67 mg/dL (70-105); Potassium 4.2 mmol/L (3.5-5.1); Sodium 132 mmol/L (136-145)
[2024-03-08] MEDS: D5 1/2 NS w/20 mEq KCL 1,000 ML IV PRN (14:05)
[2024-03-08] MEDS ORDERED: Famotidine 20 MG TAB ONE (15:09)
[2024-03-08] MEDS ORDERED: Acetaminophen 325 MG TAB ONE (15:09)
[2024-03-08] MEDS ORDERED: Enoxaparin 40 MG (0.4 mL) SYRINGE ONE (15:10)
[2024-03-08] MEDS ORDERED: Magnesium 2 GM/50 ML BAG (IN WATER) ONE (15:10)
[2024-03-08] MEDS: Famotidine 20 MG TAB PO SCH (15:15)
[2024-03-08] MEDS: Acetaminophen 325 MG TAB PO SCH (15:15)
[2024-03-08] MEDS: Enoxaparin 40 MG (0.4 mL) SYRINGE SC SCH (15:17)
[2024-03-08] MEDS: Magnesium 2 GM/50 ML(in water) 2 GM in Premix 1 BAG IVPB SCH (16:04)
[2024-03-08 16:48] LABS: Anion Gap 14 mmol/L (10-20); BUN (Urea Nitrogen) 16 mg/dL (8.9-20.6); Calc. Creatinine Clearance 81 mL/min (70-130); Carbon Dioxide 17 mmol/L (22-29); Chloride 107 mmol/L (98-107); Estimated GFR 82; Glucose 325 mg/dL (70-105); Potassium 4.5 mmol/L (3.5-5.1); Sodium 133 mmol/L (136-145)
[2024-03-08] MEDS ORDERED: Insulin Regular, Human 100 UNIT/ML 10 ML VIAL ONE (17:29)
[2024-03-08] MEDS: Enoxaparin 30 MG (0.3 mL) SYRINGE SC SCH (18:20)
[2024-03-08 19:01] VITALS: BP 100/61
[2024-03-09] MEDS ORDERED: Enoxaparin 40 MG (0.4 mL) SYRINGE SC SCH (09:00)
== END 2024-03-08 19:15 | disposition left against medical advice (07) | DRG 638 ==
LOC: ERS 02:07 → SUATTDRO 02:07 → ERHOLD 08:35 → IMCU/EMU 18:36
PROVIDERS: ADMIT Internal Medicine; ATTEND Internal Medicine
DX: E10.10 Type 1 diabetes mellitus with ketoacidosis without coma (principal); E87.1 Hypo-osmolality and hyponatremia; N17.9 Acute kidney failure, unspecified; E86.0 Dehydration; E87.5 Hyperkalemia; Z79.4 Long term (current) use of insulin; Z79.84 Long term (current) use of oral hypoglycemic drugs; Z79.899 Other long term (current) drug therapy
CPT/HCPCS: 36415; 36416; 80053; 82010; 82805; 83735; 84100; 85025; 93005; 94760; 96374; 96375; J0780; J1650; J1815; J2405; J3475; J3480

== ENCOUNTER 2024-04-20 00:47 | Emergency (ER) | payer BC ==
[2024-04-20] MEDS ORDERED: Boostrix 0.5 ML (Tdap) VIAL (>/=7 yrs of age) ONE (03:08)
[2024-04-20] MEDS ORDERED: Erythromycin Base 0.5% Oint 1 GM TUBE ONE (03:08)
== END 2024-04-20 03:37 | disposition home or self-care (01) ==
LOC: ERS 00:47
DX: T59.4X1A Toxic effect of chlorine gas, accidental (unintentional), initial encounter (principal); H10.212 Acute toxic conjunctivitis, left eye; E11.9 Type 2 diabetes mellitus without complications; F17.210 Nicotine dependence, cigarettes, uncomplicated; Y93.H9 Activity, other involving exterior property and land maintenance, building and construction; Y92.69 Other specified industrial and construction area as the place of occurrence of the external cause; Z23 Encounter for immunization; Z79.4 Long term (current) use of insulin
CPT/HCPCS: 90471; 90715

== ENCOUNTER 2024-10-05 20:25 | Inpatient (IN) | payer BC ==
[2024-10-05] MEDS ORDERED: Insulin Regular, Human 100 UNIT/ML 10 ML VIAL ONE (21:07)
[2024-10-05] MEDS ORDERED: Ondansetron PF 4 MG/2 ML Vial ONE (21:07)
[2024-10-05 21:11] LABS: #Basophils 0.03 10x3/uL (0.0-0.2); %Basophils 0.3 % (0.0-1.0); %Eosinophils 1.7 % (0.0-10.0); %Lymphocytes 8.8 % (21.0-51.0); %Monocytes 8.2 % (0.0-10.0); %Neutrophils 80.7 % (42.0-75.0); Hematocrit 45.7 % (42.0-52.0); Hemoglobin 14.4 g/dL (14.0-18.0); Mean Corpuscular HGB CONC 31.5 g/dL (32.0-36.0); Mean Corpuscular Hemoglobin 28.2 pg (27.0-31.0); Mean Corpuscular Volume 89.6 fL (78.0-98.0); Mean Platelet Volume 9.8 fL (7.4-10.4); Platelet Count 417 10x3/uL (130-400); RBC Distribution Width 12.1 % (11.5-14.5)
[2024-10-05 21:26] LABS: Phosphorus 3.7 mg/dL (2.5-4.5)
[2024-10-05 21:33] LABS: ALT (SGPT) 20 U/L (Less than 45); AST (SGOT) 25 U/L (11-34); Albumin 3.5 g/dL (3.1-4.5); Alkaline Phosphatase 115 U/L (40-110); Anion Gap 24 mmol/L (10-20); BUN (Urea Nitrogen) 16 mg/dL (8.9-20.6); Calc. Creatinine Clearance 0 mL/min (70-130); Calcium 8.8 mg/dL (7.8-10.44); Carbon Dioxide 12 mmol/L (22-29); Chloride 98 mmol/L (98-107); Estimated GFR 71; Globulin 4.4 g/dL (2.4-3.5); Glucose 412 mg/dL (70-105); Lipase 9 U/L (8-78); Magnesium 1.6 mg/dL (1.6-2.6); Potassium 5.2 mmol/L (3.5-5.1); Protein, Total 7.9 g/dL (6.0-8.3); Sodium 129 mmol/L (136-145)
[2024-10-05 21:48] LABS: Base Excess -14.9 mEq/L (-2.0 to +3.0); Calcium, Ionized (venous) 1.13 mmol/L (1.16-1.32); Hematocrit-VBG 44 % (42.0-52.0); Hemoglobin (Hb) 14.8 g/dL (13.2-17.3); Potassium (VBG) 5.69 mmol/L (3.70-5.30); Sodium 130 mmol/L (133-146)
[2024-10-05] MEDS ORDERED: INSULIN REGULAR IN 0.9 % NACL 100 ML ONE (22:16)
[2024-10-05 22:21] LABS: Troponin I Less than 0.010 ng/mL (< 0.028)
[2024-10-05 22:49] LABS: Bacteria/HPF None Seen HPF (None Seen); Bilirubin Negative (Negative); Blood, Urine Negative (Negative); CAUTI Indications for Culture Pelvic or flank pain; Clarity Clear (Clear); Glucose, Urine (Dipstick) Greater than 1000 mg/dL (Negative); Ketone, Urine Greater than 150 mg/dL (Negative); Leukocyte Negative Leu/uL (Negative); Nitrite Negative (Negative); Protein, Urine (Dipstick) Negative (Neg-Trace); RBC/HPF None Seen HPF (0-3); Specific Gravity, Urine 1.027 (1.002-1.036); Squamous Epithelial None Seen HPF (0-3); Urobilinogen Normal mg/dL (Less than 2); WBC/HPF None Seen HPF (0-3); pH, Urine 5.5 (5.0-9.0)
[2024-10-05 22:51] LABS: Urine Culture Reflex No No
[2024-10-06 00:31] VITALS: BMI 23.3
[2024-10-06] MEDS ORDERED: Acetaminophen 325 MG TAB PO PRN (00:40)
[2024-10-06] MEDS ORDERED: Electrolyte Replacement Protocol IVPB SCH (00:40)
[2024-10-06] MEDS ORDERED: Ondansetron PF 4 MG/2 ML Vial IVP PRN (00:40)
[2024-10-06] MEDS ORDERED: Sodium Chloride 0.9% 1,000 ML IV PRN ×4 (00:40)
[2024-10-06] MEDS ORDERED: NS 0.9% w/ 20 MEQ KCL 1,000 ML IV PRN (00:40)
[2024-10-06] MEDS ORDERED: Dextrose 5 %-0.45 % NaCl 1,000 ML IV PRN (00:40)
[2024-10-06] MEDS ORDERED: INSULIN REGULAR IN 0.9 % NACL 100 ML IVPB SCH (00:45)
[2024-10-06 01:22] LABS: Anion Gap 15 mmol/L (10-20); BUN (Urea Nitrogen) 16 mg/dL (8.9-20.6); Calc. Creatinine Clearance 75 mL/min (70-130); Calcium 7.9 mg/dL (7.8-10.44); Carbon Dioxide 14 mmol/L (22-29); Chloride 109 mmol/L (98-107); Estimated GFR 70; Glucose 159 mg/dL (70-105); Potassium 3.9 mmol/L (3.5-5.1); Sodium 134 mmol/L (136-145)
[2024-10-06] MEDS: NS 0.9% w/ 20 MEQ KCL 1,000 ML IV PRN (01:36)
[2024-10-06] MEDS: Dextrose 50% Abboject 50 ML SYRINGE SLOW IVP PRN (02:02)
[2024-10-06 02:26] LABS: Influenza A by NAA Not Detected (NotDetected); Influenza B by NAA Not Detected (NotDetected); SARS-CoV-2 NAA Rapid Test Not Detected (NotDetected)
[2024-10-06] MEDS: D5 1/2 NS w/20 mEq KCL 1,000 ML IV PRN (02:48)
[2024-10-06 04:34] LABS: #Basophils 0.04 10x3/uL (0.0-0.2); %Basophils 0.4 % (0.0-1.0); %Eosinophils 6.9 % (0.0-10.0); %Lymphocytes 16.6 % (21.0-51.0); %Neutrophils 59.9 % (42.0-75.0); Hematocrit 37.1 % (42.0-52.0); Hemoglobin 12.1 g/dL (14.0-18.0); Mean Corpuscular HGB CONC 32.6 g/dL (32.0-36.0); Mean Corpuscular Hemoglobin 28.9 pg (27.0-31.0); Mean Corpuscular Volume 88.8 fL (78.0-98.0); Mean Platelet Volume 9.7 fL (7.4-10.4); Platelet Count 385 10x3/uL (130-400); RBC Distribution Width 12.3 % (11.5-14.5); Red Blood Cell (RBC) Count 4.18 mill/uL (4.70-6.10)
[2024-10-06 04:56] LABS: Hemoglobin A1c 10.7 % (4.0-6.0)
[2024-10-06 04:58] LABS: Anion Gap 11 mmol/L (10-20); BUN (Urea Nitrogen) 14 mg/dL (8.9-20.6); Calc. Creatinine Clearance 67 mL/min (70-130); Calcium 7.6 mg/dL (7.8-10.44); Carbon Dioxide 18 mmol/L (22-29); Chloride 110 mmol/L (98-107); Estimated GFR 62; Glucose 194 mg/dL (70-105); Sodium 135 mmol/L (136-145)
[2024-10-06] MEDS ORDERED: Glucagon 1 MG/ML KIT IM PRN (05:21)
[2024-10-06] MEDS ORDERED: Dextrose 5% in Water 1,000 ML IV PRN (05:21)
[2024-10-06] MEDS ORDERED: Dextrose 50% Abboject 50 ML SYRINGE SLOW IVP PRN (05:21)
[2024-10-06] MEDS ORDERED: Insulin Lispro 100 UNIT/ML 10 ML VIAL SC PRN (05:21)
[2024-10-06] MEDS: Insulin Glargine 30 UNITS/0.3 ML VIAL SC SCH (05:46)
[2024-10-06] MEDS: Lactated Ringer's 1,000 ML IV SCH (05:47)
[2024-10-06] MEDS: Magnesium 2 GM/50 ML(in water) 2 GM in Premix 1 BAG IVPB SCH (08:05)
[2024-10-06] MEDS: Enoxaparin 40 MG (0.4 mL) SYRINGE SC SCH (08:05)
[2024-10-06 11:34] VITALS: BP 125/81; TEMP 97.8
[2024-10-06] MEDS: Insulin Lispro 100 UNIT/ML 10 ML VIAL SC PRN (12:29)
[2024-10-07] MEDS ORDERED: Insulin Glargine 30 UNITS/0.3 ML VIAL SC SCH (09:00)
[2024-10-09] MEDS ORDERED: FLU (Fluarix Triv) TS24-25(6MOS UP)/PF 45 MCG/0.5 ML Syringe IM ONE (00:15)
[2024-10-12 10:42] LABS: Actual Bicarbonate (HCO3v) 11.9 mEq/L (22-28); pH (venous) 7.197 (7.32-7.43)
== END 2024-10-06 12:45 | disposition left against medical advice (07) | DRG 638 ==
LOC: ERS 20:25 → ERHOLD 22:50 → PCU 23:45 → T4-A 10-06 10:21
PROVIDERS: ADMIT Internal Medicine; ATTEND Internal Medicine Critical Care Medicine
DX: E11.10 Type 2 diabetes mellitus with ketoacidosis without coma (principal); N17.9 Acute kidney failure, unspecified; F10.90 Alcohol use, unspecified, uncomplicated; E87.5 Hyperkalemia; Z72.0 Tobacco use; Z91.148 Patient's other noncompliance with medication regimen for other reason; Z79.4 Long term (current) use of insulin
CPT/HCPCS: 36415; 36416; 71045; 80048; 80053; 81001; 82010; 82805; 83036; 83605; 83690; 83735; 84100; 84484; 85025; 93005; 94760; 96365; 96375; 96376; J1650; J1815; J2405; J3475; J3480; J7120; J7999

== ENCOUNTER 2025-03-08 07:25 | Inpatient (IN) | payer BC ==
[2025-03-08 08:02] LABS: #Basophils 0.05 10x3/uL (0.0-0.2); #Eosinophils Less than 0.03 10x3/uL (0.0-0.7); #Monocytes 0.41 10x3/uL (0.11-0.59); #Neutrophils 12.24 10x3/uL (1.40-6.50); %Basophils 0.4 % (0.0-1.0); %Eosinophils 0.1 % (0.0-10.0); %Lymphocytes 6.4 % (21.0-51.0); %Monocytes 3.0 % (0.0-10.0); %Neutrophils 89.7 % (42.0-75.0); Hematocrit 48.9 % (42.0-52.0); Hemoglobin 15.1 g/dL (14.0-18.0); Mean Corpuscular Hemoglobin 28.7 pg (27.0-31.0); Mean Corpuscular Volume 92.8 fL (78.0-98.0); Platelet Count 447 10x3/uL (130-400); Red Blood Cell (RBC) Count 5.27 mill/uL (4.70-6.10); White Blood Cell (WBC) Count 13.65 10x3/uL (4.8-10.8)
[2025-03-08 08:12] LABS: ALT (SGPT) 28 U/L (Less than 45); AST (SGOT) 65 U/L (11-34); Albumin 4.1 g/dL (3.1-4.5); Alkaline Phosphatase 110 U/L (40-110); Anion Gap 27 mmol/L (10-20); BUN (Urea Nitrogen) 20 mg/dL (8.9-20.6); Bilirubin, Total 0.5 mg/dL (0.3-1.2); Calc. Creatinine Clearance 0 mL/min (70-130); Calcium 9.4 mg/dL (7.8-10.44); Carbon Dioxide 10 mmol/L (22-29); Chloride 96 mmol/L (98-107); Globulin 4.2 g/dL (2.4-3.5); Glucose 395 mg/dL (70-105); Potassium 5.3 mmol/L (3.5-5.1); Sodium 128 mmol/L (136-145)
[2025-03-08] MEDS ORDERED: Ketorolac Tromethamine 30 MG (1 mL) VIAL ONE (08:14)
[2025-03-08] MEDS ORDERED: Ondansetron PF 4 MG/2 ML Vial ONE (08:14)
[2025-03-08] MEDS ORDERED: INSULIN REGULAR IN 0.9 % NACL 100 ML ONE (08:25)
[2025-03-08 09:35] LABS: Analyzer IN Cardio ER; Base Excess -19.6 mEq/L (-2.0 to +3.0); Calcium, Ionized (venous) 1.22 mmol/L (1.16-1.32); Chloride (VBG) 102 mmol/L (98-106); Hematocrit-VBG 44 % (42.0-52.0); Hemoglobin (Hb) 15.1 g/dL (13.2-17.3); Potassium (VBG) 4.56 mmol/L (3.70-5.30); Sodium 133 mmol/L (133-146)
[2025-03-08 09:41] LABS: Actual Bicarbonate (HCO3v) 10.6 mEq/L (22-28)
[2025-03-08] MEDS ORDERED: Ondansetron PF 4 MG/2 ML Vial IVP PRN (10:21)
[2025-03-08] MEDS ORDERED: Acetaminophen 325 MG TAB PO PRN (10:21)
[2025-03-08] MEDS ORDERED: NS 0.9% w/ 20 MEQ KCL 1,000 ML IV PRN ×2 (10:23)
[2025-03-08] MEDS ORDERED: Dextrose 50% Abboject 50 ML SYRINGE SLOW IVP PRN ×2 (10:23→17:19)
[2025-03-08] MEDS ORDERED: Electrolyte Replacement Protocol 1 EACH IVPB SCH (10:23)
[2025-03-08] MEDS ORDERED: INSULIN REGULAR IN 0.9 % NACL 100 ML IVPB SCH (10:30)
[2025-03-08 11:19] LABS: Anion Gap 20 mmol/L (10-20); BUN (Urea Nitrogen) 20 mg/dL (8.9-20.6); Calc. Creatinine Clearance 0 mL/min (70-130); Calcium 8.1 mg/dL (7.8-10.44); Carbon Dioxide 11 mmol/L (22-29); Chloride 104 mmol/L (98-107); Glucose 204 mg/dL (70-105); Magnesium 1.7 mg/dL (1.6-2.6); Potassium 4.5 mmol/L (3.5-5.1); Sodium 130 mmol/L (136-145)
[2025-03-08] MEDS: D5 1/2 NS w/20 mEq KCL 1,000 ML IV PRN (12:17)
[2025-03-08] MEDS: Magnesium 2 GM/50 ML(in water) 2 GM in Premix 1 BAG IVPB SCH (12:18)
[2025-03-08 12:20] VITALS: BMI 24.4
[2025-03-08 15:25] LABS: Anion Gap 12 mmol/L (10-20); BUN (Urea Nitrogen) 17 mg/dL (8.9-20.6); Calc. Creatinine Clearance 112 mL/min (70-130); Calcium 7.6 mg/dL (7.8-10.44); Carbon Dioxide 16 mmol/L (22-29); Chloride 105 mmol/L (98-107); Glucose 190 mg/dL (70-105); Potassium 5.1 mmol/L (3.5-5.1); Sodium 128 mmol/L (136-145)
[2025-03-08] MEDS ORDERED: Glucagon 1 MG/ML KIT IM PRN (17:19)
[2025-03-08 18:56] LABS: Anion Gap 13 mmol/L (10-20); BUN (Urea Nitrogen) 17 mg/dL (8.9-20.6); Calc. Creatinine Clearance 107 mL/min (70-130); Calcium 7.9 mg/dL (7.8-10.44); Carbon Dioxide 18 mmol/L (22-29); Chloride 102 mmol/L (98-107); Glucose 276 mg/dL (70-105); Potassium 4.8 mmol/L (3.5-5.1); Sodium 128 mmol/L (136-145)
[2025-03-08] MEDS: Famotidine 20 MG TAB PO SCH (20:23)
[2025-03-08] MEDS: Insulin Glargine 30 UNITS/0.3 ML VIAL SC SCH (20:23)
[2025-03-09 06:18] LABS: Anion Gap 12 mmol/L (10-20); BUN (Urea Nitrogen) 14 mg/dL (8.9-20.6); Calc. Creatinine Clearance 116 mL/min (70-130); Calcium 8.2 mg/dL (7.8-10.44); Carbon Dioxide 20 mmol/L (22-29); Chloride 106 mmol/L (98-107); Glucose 212 mg/dL (70-105); Potassium 4.0 mmol/L (3.5-5.1); Sodium 134 mmol/L (136-145)
[2025-03-09 07:41] VITALS: TEMP 97.7
[2025-03-09] MEDS: Enoxaparin 40 MG (0.4 mL) SYRINGE SC SCH (08:34)
[2025-03-09 11:36] VITALS: BP 119/78
[2025-03-09 12:35] LABS: #Basophils Less than 0.03 10x3/uL (0.0-0.2); #Eosinophils 0.28 10x3/uL (0.0-0.7); #Monocytes 0.74 10x3/uL (0.11-0.59); #Neutrophils 5.27 10x3/uL (1.40-6.50); %Basophils 0.3 % (0.0-1.0); %Eosinophils 3.5 % (0.0-10.0); %Lymphocytes 20.9 % (21.0-51.0); %Monocytes 9.3 % (0.0-10.0); %Neutrophils 65.7 % (42.0-75.0); Hematocrit 40.2 % (42.0-52.0); Hemoglobin 12.9 g/dL (14.0-18.0); Mean Corpuscular Hemoglobin 28.8 pg (27.0-31.0); Mean Corpuscular Volume 89.7 fL (78.0-98.0); Platelet Count 349 10x3/uL (130-400); Red Blood Cell (RBC) Count 4.48 mill/uL (4.70-6.10); White Blood Cell (WBC) Count 8.00 10x3/uL (4.8-10.8)
[2025-03-09 12:55] LABS: Anion Gap 11 mmol/L (10-20); BUN (Urea Nitrogen) 14 mg/dL (8.9-20.6); Calc. Creatinine Clearance 134 mL/min (70-130); Calcium 8.2 mg/dL (7.8-10.44); Carbon Dioxide 24 mmol/L (22-29); Chloride 104 mmol/L (98-107); Glucose 228 mg/dL (70-105); Potassium 3.8 mmol/L (3.5-5.1); Sodium 135 mmol/L (136-145)
== END 2025-03-09 15:42 | disposition home or self-care (01) | DRG 639 ==
LOC: ERS 07:25 → CCU 09:55 → T4-B 03-09 04:14
PROVIDERS: ADMIT Internal Medicine; ATTEND Family Medicine
DX: E10.10 Type 1 diabetes mellitus with ketoacidosis without coma (principal); F17.210 Nicotine dependence, cigarettes, uncomplicated; Z79.4 Long term (current) use of insulin; Z79.899 Other long term (current) drug therapy
CPT/HCPCS: 36415; 36416; 80048; 80053; 82010; 82805; 83735; 85025; 96374; 96375; J1650; J1815; J1885; J2405; J3475; J3480; J7042; J7120

== ENCOUNTER 2025-04-18 06:20 | Inpatient (IN) | payer BC ==
[2025-04-18 06:58] LABS: #Basophils 0.06 10x3/uL (0.0-0.2); #Eosinophils Less than 0.03 10x3/uL (0.0-0.7); #Monocytes 0.77 10x3/uL (0.11-0.59); #Neutrophils 13.57 10x3/uL (1.40-6.50); %Basophils 0.4 % (0.0-1.0); %Eosinophils 0.1 % (0.0-10.0); %Lymphocytes 6.7 % (21.0-51.0); %Monocytes 4.9 % (0.0-10.0); %Neutrophils 87.1 % (42.0-75.0); Hematocrit 51.4 % (42.0-52.0); Hemoglobin 15.3 g/dL (14.0-18.0); Mean Corpuscular Hemoglobin 28.4 pg (27.0-31.0); Mean Corpuscular Volume 95.5 fL (78.0-98.0); Platelet Count 523 10x3/uL (130-400); Red Blood Cell (RBC) Count 5.38 mill/uL (4.70-6.10); White Blood Cell (WBC) Count 15.58 10x3/uL (4.8-10.8)
[2025-04-18 07:01] LABS: Analyzer IN Cardio ER; Base Excess -21.5 mEq/L (-2.0 to +3.0); Calcium, Ionized (venous) 1.33 mmol/L (1.16-1.32); Chloride (VBG) 99 mmol/L (98-106); Hematocrit-VBG 49 % (42.0-52.0); Hemoglobin (Hb) 16.5 g/dL (13.2-17.3); Potassium (VBG) 5.27 mmol/L (3.70-5.30); Sodium 140 mmol/L (133-146)
[2025-04-18 07:13] LABS: Actual Bicarbonate (HCO3v) 8.7 mEq/L (22-28)
[2025-04-18] MEDS ORDERED: INSULIN REGULAR IN 0.9 % NACL 100 ML ONE (07:59)
[2025-04-18] MEDS ORDERED: Ondansetron PF 4 MG/2 ML Vial ONE (07:59)
[2025-04-18 08:03] LABS: ALT (SGPT) 34 U/L (Less than 45); AST (SGOT) 52 U/L (11-34); Albumin 4.5 g/dL (3.1-4.5); Alkaline Phosphatase 141 U/L (40-110); Anion Gap 35 mmol/L (10-20); BUN (Urea Nitrogen) 32 mg/dL (8.9-20.6); Bilirubin, Total 0.4 mg/dL (0.3-1.2); Calc. Creatinine Clearance 0 mL/min (70-130); Calcium 10.0 mg/dL (7.8-10.44); Carbon Dioxide Less than 8 mmol/L (22-29); Chloride 98 mmol/L (98-107); Globulin 4.1 g/dL (2.4-3.5); Glucose 502 mg/dL (70-105); Magnesium 2.8 mg/dL (1.6-2.6); Potassium 6.0 mmol/L (3.5-5.1); Sodium 134 mmol/L (136-145)
[2025-04-18] MEDS ORDERED: Calcium Chloride 1 GM/10 ML Abboject SYRINGE ONE (08:11)
[2025-04-18] MEDS ORDERED: Senokot S 8.6-50 MG TAB PO PRN (08:43)
[2025-04-18] MEDS ORDERED: Electrolyte Replacement Protocol 1 EACH IVPB SCH (08:43)
[2025-04-18] MEDS ORDERED: NS 0.9% w/ 20 MEQ KCL 1,000 ML IV PRN ×2 (08:43)
[2025-04-18] MEDS ORDERED: Acetaminophen 325 MG TAB PO PRN (08:43)
[2025-04-18] MEDS ORDERED: Ondansetron PF 4 MG/2 ML Vial IVP PRN (08:43)
[2025-04-18] MEDS ORDERED: Bisacodyl 10 MG SUPP PR PRN (08:43)
[2025-04-18 08:52] LABS: Bacteria/HPF None Seen HPF (None Seen); CAUTI Indications for Culture Alt mental st,lethar; Glucose, Urine (Dipstick) Greater than 1000 mg/dL (Negative); Leukocyte Negative Leu/uL (Negative); Protein, Urine (Dipstick) 20 mg/dL (Neg-Trace); RBC/HPF 0-3 HPF (0-3); Specific Gravity, Urine 1.019 (1.002-1.036); WBC/HPF 0-3 HPF (0-3)
[2025-04-18 08:54] LABS: Urine Culture Reflex No No
[2025-04-18 09:29] VITALS: BP 131/75
[2025-04-18 09:44] LABS: Anion Gap 28 mmol/L (10-20); BUN (Urea Nitrogen) 30 mg/dL (8.9-20.6); Calc. Creatinine Clearance 0 mL/min (70-130); Calcium 10.3 mg/dL (7.8-10.44); Carbon Dioxide Less than 8 mmol/L (22-29); Chloride 107 mmol/L (98-107); Glucose 372 mg/dL (70-105); Potassium 4.9 mmol/L (3.5-5.1); Sodium 136 mmol/L (136-145)
[2025-04-18 10:07] LABS: Cocaine Metabolite Screen Negative (Negative); THC/Cannabinoid Screen Negative (Negative); Tricyclic Screen Negative (Negative)
[2025-04-18 12:10] LABS: Anion Gap 25 mmol/L (10-20); BUN (Urea Nitrogen) 27 mg/dL (8.9-20.6); Calc. Creatinine Clearance 84 mL/min (70-130); Calcium 9.8 mg/dL (7.8-10.44); Carbon Dioxide 8 mmol/L (22-29); Chloride 110 mmol/L (98-107); Glucose 246 mg/dL (70-105); Potassium 4.7 mmol/L (3.5-5.1); Sodium 138 mmol/L (136-145)
[2025-04-18] MEDS ORDERED: NS 0.9% w/ 20 MEQ KCL 1,000 ML ONE (12:55)
[2025-04-18] MEDS ORDERED: Dextrose 50% Abboject 50 ML SYRINGE ONE (13:15)
[2025-04-18] MEDS: D5 1/2 NS w/20 mEq KCL 1,000 ML IV PRN (13:15)
[2025-04-18] MEDS: Dextrose 50% Abboject 50 ML SYRINGE SLOW IVP PRN (13:15)
[2025-04-18 15:14] VITALS: BMI 22.3
[2025-04-18 17:20] LABS: Anion Gap 19 mmol/L (10-20); BUN (Urea Nitrogen) 21 mg/dL (8.9-20.6); Calc. Creatinine Clearance 80 mL/min (70-130); Calcium 9.3 mg/dL (7.8-10.44); Carbon Dioxide 16 mmol/L (22-29); Chloride 110 mmol/L (98-107); Glucose 213 mg/dL (70-105); Potassium 4.5 mmol/L (3.5-5.1); Sodium 140 mmol/L (136-145)
[2025-04-18] MEDS: INSULIN REGULAR IN 0.9 % NACL 100 ML IVPB SCH (20:05)
[2025-04-18 21:25] LABS: Anion Gap 14 mmol/L (10-20); BUN (Urea Nitrogen) 18 mg/dL (8.9-20.6); Calc. Creatinine Clearance 87 mL/min (70-130); Calcium 8.9 mg/dL (7.8-10.44); Carbon Dioxide 18 mmol/L (22-29); Chloride 112 mmol/L (98-107); Glucose 218 mg/dL (70-105); Potassium 4.3 mmol/L (3.5-5.1); Sodium 140 mmol/L (136-145)
[2025-04-19 04:20] LABS: Anion Gap 10 mmol/L (10-20); BUN (Urea Nitrogen) 14 mg/dL (8.9-20.6); Calc. Creatinine Clearance 108 mL/min (70-130); Calcium 8.4 mg/dL (7.8-10.44); Carbon Dioxide 19 mmol/L (22-29); Chloride 114 mmol/L (98-107); Glucose 209 mg/dL (70-105); Magnesium 1.9 mg/dL (1.6-2.6); Potassium 4.3 mmol/L (3.5-5.1); Sodium 139 mmol/L (136-145)
[2025-04-19 04:35] LABS: #Basophils 0.03 10x3/uL (0.0-0.2); #Eosinophils 0.10 10x3/uL (0.0-0.7); #Monocytes 2.14 10x3/uL (0.11-0.59); #Neutrophils 14.06 10x3/uL (1.40-6.50); %Basophils 0.2 % (0.0-1.0); %Eosinophils 0.6 % (0.0-10.0); %Lymphocytes 9.5 % (21.0-51.0); %Monocytes 11.8 % (0.0-10.0); %Neutrophils 77.5 % (42.0-75.0); Hematocrit 41.4 % (42.0-52.0); Hemoglobin 12.9 g/dL (14.0-18.0); Mean Corpuscular Hemoglobin 28.9 pg (27.0-31.0); Mean Corpuscular Volume 92.6 fL (78.0-98.0); Platelet Count 382 10x3/uL (130-400); Red Blood Cell (RBC) Count 4.47 mill/uL (4.70-6.10); White Blood Cell (WBC) Count 18.13 10x3/uL (4.8-10.8)
[2025-04-19] MEDS ORDERED: Glucagon 1 MG/ML KIT IM PRN (04:44)
[2025-04-19] MEDS ORDERED: Dextrose 50% Abboject 50 ML SYRINGE SLOW IVP PRN (04:44)
[2025-04-19] MEDS: Insulin Glargine 30 UNITS/0.3 ML VIAL SC SCH (05:04)
[2025-04-19] MEDS: Magnesium 2 GM/50 ML(in water) 2 GM in Premix 1 BAG IVPB SCH (07:54)
[2025-04-19 12:29] VITALS: TEMP 97.6
[2025-04-19] MEDS ORDERED: Insulin Glargine 30 UNITS/0.3 ML VIAL SC SCH (21:00)
[2025-04-21] MEDS ORDERED: PNEUMOC 20-VAL CONJ-DIP CRM/PF 0.5 ML SYRINGE IM ONE (16:00)
== END 2025-04-19 13:52 | disposition home or self-care (01) | DRG 638 ==
LOC: SUATTDRO 06:20 → ERS 06:20 → ERHOLD 08:41 → CCU 13:47
PROVIDERS: ADMIT Family Medicine; ATTEND Hospitalist
DX: E11.10 Type 2 diabetes mellitus with ketoacidosis without coma (principal); N17.9 Acute kidney failure, unspecified; F17.210 Nicotine dependence, cigarettes, uncomplicated; E87.5 Hyperkalemia; F15.90 Other stimulant use, unspecified, uncomplicated; Z79.4 Long term (current) use of insulin; Z79.899 Other long term (current) drug therapy; Z79.85 Long-term (current) use of injectable non-insulin antidiabetic drugs; Z91.148 Patient's other noncompliance with medication regimen for other reason
CPT/HCPCS: 36415; 36416; 80048; 80053; 80306; 80307; 81001; 82010; 82805; 83036; 83735; 84100; 84443; 85025; 93005; J1815; J2405; J3475; J3480; J7999